=== PATIENT | male | born 1980 | race Two or more races ===

== ENCOUNTER 2020-11-20 11:18 | Emergency (ER) | payer OTHER ==
[~2020-11-20] VITALS: Ht 177.8 cm; Wt 63.5 kg
== END 2020-11-20 17:51 | disposition home or self-care (01) ==
LOC: ER 11:18
DX: S42.011A Anterior displaced fracture of sternal end of right clavicle, initial encounter for closed fracture (principal); V19.9XXA Pedal cyclist (driver) (passenger) injured in unspecified traffic accident, initial encounter; Y93.89 Activity, other specified; Y92.488 Other paved roadways as the place of occurrence of the external cause; Y99.8 Other external cause status